=== PATIENT | male | born 1980 | race Caucasian/White ===

== ENCOUNTER → 2025-04-29 08:52 | Outpatient (REF) | payer BC, SELFPAY | LOC: HWRCS 08:52 | PROVIDERS: ATTENDING PHYSICIAN Internal Medicine Cardiovascular Disease; FAMILY PHYSICIAN Physician Assistant Medical | DX: R00.2 Palpitations (principal) | CPT/HCPCS: 93306 ==

== ENCOUNTER → 2025-04-30 07:37 | Outpatient (REF) | payer BC, SELFPAY | LOC: RCS 07:37 | PROVIDERS: ATTENDING PHYSICIAN Internal Medicine Cardiovascular Disease; FAMILY PHYSICIAN Physician Assistant Medical | DX: R00.0 Tachycardia, unspecified (principal) | CPT/HCPCS: 93017 ==